=== PATIENT | male | born 1955 | race Hispanic/Latino ===

== ENCOUNTER 2022-07-14 16:30 | Emergency (ER) | payer OTHER ==
[~2022-07-14] VITALS: Ht 157.5 cm; Wt 62.1 kg
[2022-07-14 18:02] LABS: APPEARANCE,URINE CLEAR (CLEAR); BILIRUBIN,URINE NEGATIVE (NEGATIVE); COLOR,URINE LIGHT-YELLOW (YELLOW); GLUCOSE, URINE (UA) NEGATIVE (NEGATIVE); KETONES,URINE NEGATIVE (NEGATIVE); LEUKOCYTE ESTERASE ,URINE 250 Leu/uL (NEGATIVE); NITRATE,URINE NEGATIVE (NEGATIVE); OCCULT BLOOD,URINE LARGE (NEGATIVE); PH,URINE 5.5 (5.0-8.0); PROTEIN,URINE 20 mg/dL (NEGATIVE); UROBILINOGEN,URINE 0.2 mg/dL (0.2-1.0)
[2022-07-14 18:07] LABS: BACTERIA,URINE RARE /HPF (None Seen); MUCUS,URINE RARE LPF (None Seen); RBC,URINE 51-100 /HPF (0-1); SQUAMOUS EPITHELIAL CELL,UR RARE /HPF (0-2)
[2022-07-14 18:11] LABS: BASOPHILS % (AUTO) 0.5 % (0.0-5.0); EOSINOPHILS % (AUTO) 0.2 % (0.0-8.0); HEMATOCRIT 37.9 % (42-54); MEAN CORPUSCULAR HEMOGLOBIN 29.5 pg (27.0-33.0); MEAN CORPUSCULAR HGB CONC 34.8 g/dL (32.0-36.0); MEAN CORPUSCULAR VOLUME 84.6 fL (79-99); MONOCYTES % (AUTO) 7.8 % (3.0-13.0); PLATELET COUNT (AUTO) 249 K/uL (130-400); RED BLOOD CELL COUNT(AUTO) 4.48 MIL/uL (4.50-6.20); RED CELL DISTRIBUTION WIDTH 13.2 % (11.0-15.5); WHITE BLOOD COUNT (AUTO) 13.5 K/uL (4.8-10.8)
[2022-07-14 18:23] LABS: CREATININE 1.1 mg/dL (0.5-1.5); POTASSIUM 3.4 mmol/L (3.5-5.1)
[2022-07-14 18:29] LABS: ALBUMIN 3.5 g/dL (3.5-5.0); TOTAL PROTEIN, SERUM 7.3 g/dL (6.0-8.3)
[2022-07-14] MEDS ORDERED: PHENAZOPYRIDINE HCL 200 MG TABLET PO ONE (18:30)
[2022-07-14] MEDS ORDERED: MACR100 PO (18:41)
[2022-07-14] MEDS ORDERED: PHEN-847 PO (18:41)
[2022-07-14] MEDS ORDERED: CEFTRIAXONE 1G VIAL ONE (18:51)
[2022-07-14] MEDS ORDERED: PHENAZOPYRIDINE HCL 200 MG TABLET ONE (18:51)
[2022-07-14] MEDS ORDERED: CEFTRIAXONE 1G VIAL IVP ONE (19:00)
[2022-07-14 19:17] VITALS: BP 145/82
== END 2022-07-14 19:23 | disposition home or self-care (01) ==
LOC: EDH 16:30
DX: N39.0 Urinary tract infection, site not specified (principal); N32.89 Other specified disorders of bladder
CPT/HCPCS: 99283; 96374; 80053; 85025; 87088; 83605; 81001; 36415; J0696

== ENCOUNTER 2022-12-05 09:09 | Observation (INO) | payer OTHER ==
[~2022-12-05] VITALS: Ht 157.5 cm; Wt 62.6 kg
[~2022-12-05 09:09] MED LIST: MACR100 PO; PHEN-847 PO
[2022-12-05 09:53] LABS: BASOPHILS % (AUTO) 0.9 % (0.0-5.0); EOSINOPHILS % (AUTO) 0.1 % (0.0-8.0); HEMATOCRIT 39.6 % (42-54); LYMPHOCYTES % (AUTO) 13.5 % (21.0-51.0); MEAN CORPUSCULAR HEMOGLOBIN 29.9 pg (27.0-33.0); MEAN CORPUSCULAR HGB CONC 34.8 g/dL (32.0-36.0); MEAN CORPUSCULAR VOLUME 85.7 fL (79-99); MONOCYTES % (AUTO) 4.6 % (3.0-13.0); NEUTROPHILS % (AUTO) 80.2 % (40.0-77.0); PLATELET COUNT (AUTO) 219 K/uL (130-400); RED BLOOD CELL COUNT(AUTO) 4.62 MIL/uL (4.50-6.20); RED CELL DISTRIBUTION WIDTH 13.2 % (11.0-15.5); WHITE BLOOD COUNT (AUTO) 8.5 K/uL (4.8-10.8)
[2022-12-05 10:04] LABS: APPEARANCE,URINE CLEAR (CLEAR); BILIRUBIN,URINE NEGATIVE (NEGATIVE); COLOR,URINE COLORLESS (YELLOW); GLUCOSE, URINE (UA) NEGATIVE (NEGATIVE); KETONES,URINE NEGATIVE (NEGATIVE); LEUKOCYTE ESTERASE ,URINE NEGATIVE Leu/uL (NEGATIVE); NITRATE,URINE NEGATIVE (NEGATIVE); OCCULT BLOOD,URINE SMALL (NEGATIVE); PROTEIN,URINE NEGATIVE (NEGATIVE); UROBILINOGEN,URINE 0.2 mg/dL (0.2-1.0)
[2022-12-05 10:08] LABS: CREATININE 1.2 mg/dL (0.5-1.5); POTASSIUM 3.1 mmol/L (3.5-5.1)
[2022-12-05 10:14] LABS: ALBUMIN 3.8 g/dL (3.5-5.0); TOTAL PROTEIN, SERUM 7.6 g/dL (6.0-8.3)
[2022-12-05] MEDS ORDERED: CEFTRIAXONE 2GM VIAL IVP ONE (10:30)
[2022-12-05 10:42] LABS: BACTERIA,URINE Rare /HPF (None Seen); RBC,URINE 0-1 /HPF (0-1); SQUAMOUS EPITHELIAL CELL,UR Rare /HPF (0-2); WBC,URINE None Seen /HPF (0-1)
[2022-12-05] MEDS ORDERED: HYDRALAZINE 20MG/ML VIAL IV PRN (11:00)
[2022-12-05] MEDS ORDERED: LACTULOSE 20 GM/30 ML UDCUP PO PRN (11:00)
[2022-12-05] MEDS ORDERED: POTASSIUM CHLORIDE 10% ELIXIR 20 MEQ/15 ML UDCUP PO PRN (11:00)
[2022-12-05] MEDS ORDERED: ACETAMINOPHEN 325 MG TAB PO PRN (11:00)
[2022-12-05] MEDS ORDERED: LABETALOL 20MG SYG IV PRN (11:00)
[2022-12-05] MEDS ORDERED: ONDANSETRON 4MG INJ IVP PRN (11:00)
[2022-12-05] MEDS: INSULIN HUMULIN R 100 UNIT/ML 3ML SQ SCH ×3 (11:30→21:00)
[2022-12-05] MEDS: KCL 20 MEQ ERTAB PO PRN ×2 (12:41→21:54)
[2022-12-05] MEDS ORDERED: BUSP7.5T7 PO (14:22)
[2022-12-05] MEDS ORDERED: DOXA4TAB3 PO (14:22)
[2022-12-05] MEDS ORDERED: ATOR10 PO (14:22)
[2022-12-05 15:20] VITALS: BP 127/60
[2022-12-05 20:00] VITALS: BP 153/65
[2022-12-05] MEDS: 0.9%NACL 1000ML 1,000 ML IV SCH (21:44)
[2022-12-05] MEDS: FAMOTIDINE 20MG TAB PO SCH (21:44)
[2022-12-05] MEDS: CEFEPIME HCL 1 GM VIAL IVP SCH (21:44)
[2022-12-05 22:30] VITALS: BP 125/62
[2022-12-06] MEDS: KCL 20 MEQ ERTAB PO PRN (01:45)
[2022-12-06] MEDS: 0.9%NACL 1000ML 1,000 ML IV SCH ×2 (05:24→13:30)
[2022-12-06 05:58] LABS: BASOPHILS % (AUTO) 0.8 % (0.0-5.0); EOSINOPHILS % (AUTO) 0.7 % (0.0-8.0); LYMPHOCYTES % (AUTO) 18.2 % (21.0-51.0); MEAN CORPUSCULAR HEMOGLOBIN 29.4 pg (27.0-33.0); MEAN CORPUSCULAR HGB CONC 33.2 g/dL (32.0-36.0); MEAN CORPUSCULAR VOLUME 88.8 fL (79-99); MONOCYTES % (AUTO) 9.9 % (3.0-13.0); NEUTROPHILS % (AUTO) 70.1 % (40.0-77.0); PLATELET COUNT (AUTO) 245 K/uL (130-400); RED BLOOD CELL COUNT(AUTO) 4.28 MIL/uL (4.50-6.20); RED CELL DISTRIBUTION WIDTH 13.6 % (11.0-15.5); WHITE BLOOD COUNT (AUTO) 8.6 K/uL (4.8-10.8)
[2022-12-06 06:01] VITALS: BP 125/63
[2022-12-06 06:15] LABS: PHOSPHORUS 2.8 mg/dL (2.5-4.9); POTASSIUM 4.6 mmol/L (3.5-5.1)
[2022-12-06] MEDS: INSULIN HUMULIN R 100 UNIT/ML 3ML SQ SCH ×2 (06:20→11:30)
[2022-12-06 06:23] LABS: HEMOGLOBIN A1C 5.5 % (4.0-6.0)
[2022-12-06 08:00] VITALS: BP 116/58
[2022-12-06] MEDS: FAMOTIDINE 20MG TAB PO SCH (08:10)
[2022-12-06] MEDS: CEFEPIME HCL 1 GM VIAL IVP SCH (08:10)
[2022-12-06 11:19] VITALS: BP 134/67
== END 2022-12-06 15:00 | disposition home or self-care (01) ==
LOC: EDH 09:09 → EDHIP 10:59 → 4CH 14:00
PROVIDERS: ADMIT Internal Medicine; ATTEND Internal Medicine
DX: R33.9 Retention of urine, unspecified (principal); E87.20 Acidosis, unspecified; I16.0 Hypertensive urgency; I10 Essential (primary) hypertension; E78.5 Hyperlipidemia, unspecified; N35.911 Unspecified urethral stricture, male, meatal; Z87.440 Personal history of urinary (tract) infections; Z79.899 Other long term (current) drug therapy; Z98.890 Other specified postprocedural states
CPT/HCPCS: 83605 ×3; 96374; 96361 ×2; 96375; 99284; 80053; 85025 ×2; 87040 ×2; 87088; 82948 ×2; 81001; 36415 ×2; 71045; 96376; 83036; 83735; 84100; 80048; G0378 ×28; J0696; J0692 ×2

== ENCOUNTER 2023-11-05 14:40 | Emergency (ER) | payer OTHER ==
[~2023-11-05] VITALS: Ht 157.5 cm; Wt 79.4 kg
[~2023-11-05 14:40] MED LIST changes: +ATOR10 PO; +BUSP7.5T7 PO; +DOXA4TAB3 PO; -MACR100 PO; -PHEN-847 PO
[2023-11-05 14:47] VITALS: O2SAT 98
[2023-11-05 14:48] VITALS: BP 175/57; PULSE 89; RESP 18
[2023-11-05 15:43] LABS: BILIRUBIN,URINE NEGATIVE (NEGATIVE); GLUCOSE, URINE (UA) NEGATIVE (NEGATIVE); KETONES,URINE NEGATIVE (NEGATIVE); LEUKOCYTE ESTERASE ,URINE 500 Leu/uL (NEGATIVE); NITRATE,URINE NEGATIVE (NEGATIVE); OCCULT BLOOD,URINE LARGE (NEGATIVE); PROTEIN,URINE 30 mg/dL (NEGATIVE); UROBILINOGEN,URINE 0.2 mg/dL (0.2-1.0)
[2023-11-05 15:45] LABS: ADD UA MICROSCOPIC YES; APPEARANCE,URINE HAZY (CLEAR)
[2023-11-05 15:46] LABS: COLOR,URINE RED (YELLOW)
[2023-11-05 15:49] LABS: BACTERIA,URINE FEW /HPF (None Seen); SQUAMOUS EPITHELIAL CELL,UR RARE /HPF (0-2)
[2023-11-05] MEDS ORDERED: LEVO-70 PO (16:23)
[2023-11-05] MEDS ORDERED: LEVOFLOXACIN 500 MG TABLET PO ONE (16:30)
== END 2023-11-05 16:40 | disposition home or self-care (01) ==
LOC: EDH 14:40
DX: N30.01 Acute cystitis with hematuria (principal); Z93.59 Other cystostomy status; Z79.899 Other long term (current) drug therapy; Z98.890 Other specified postprocedural states
CPT/HCPCS: 81001; 87077; 87088; 87186

== ENCOUNTER 2024-02-09 01:52 | Emergency (ER) | payer OTHER ==
[~2024-02-09] VITALS: Ht 157.5 cm; Wt 65.8 kg
[~2024-02-09 01:52] MED LIST changes: +LEVO-70 PO
[2024-02-09 02:20] VITALS: BP 180/88; PULSE 76; RESP 18; O2SAT 99
[2024-02-09 03:17] LABS: APPEARANCE,URINE CLOUDY (CLEAR); BILIRUBIN,URINE NEGATIVE (NEGATIVE); COLOR,URINE LIGHT-YELLOW (YELLOW); GLUCOSE, URINE (UA) NEGATIVE (NEGATIVE); KETONES,URINE NEGATIVE (NEGATIVE); LEUKOCYTE ESTERASE ,URINE 25 Leu/uL (NEGATIVE); NITRATE,URINE NEGATIVE (NEGATIVE); OCCULT BLOOD,URINE LARGE (NEGATIVE); PH,URINE 5.5 (5.0-8.0); PROTEIN,URINE NEGATIVE (NEGATIVE); UROBILINOGEN,URINE 0.2 mg/dL (0.2-1.0)
[2024-02-09 03:19] LABS: ADD UA MICROSCOPIC YES
[2024-02-09 03:20] LABS: BACTERIA,URINE RARE /HPF (None Seen)
== END 2024-02-09 03:18 | disposition home or self-care (01) ==
LOC: EDH 01:52
DX: N40.1 Benign prostatic hyperplasia with lower urinary tract symptoms (principal); R33.8 Other retention of urine; Z79.899 Other long term (current) drug therapy; Z98.890 Other specified postprocedural states
CPT/HCPCS: 51702; 81001

== ENCOUNTER 2024-02-26 21:04 | Emergency (ER) | payer OTHER ==
[~2024-02-26] VITALS: Ht 157.5 cm; Wt 65.8 kg
[2024-02-26 23:58] LABS: APPEARANCE,URINE CLEAR (CLEAR); BILIRUBIN,URINE NEGATIVE (NEGATIVE); COLOR,URINE COLORLESS (YELLOW); GLUCOSE, URINE (UA) NEGATIVE (NEGATIVE); KETONES,URINE NEGATIVE (NEGATIVE); LEUKOCYTE ESTERASE ,URINE 250 Leu/uL (NEGATIVE); NITRATE,URINE NEGATIVE (NEGATIVE); OCCULT BLOOD,URINE LARGE (NEGATIVE); PROTEIN,URINE 50 mg/dL (NEGATIVE); UROBILINOGEN,URINE 0.2 mg/dL (0.2-1.0)
[2024-02-27] LABS: ADD UA MICROSCOPIC YES
[2024-02-27 00:01] LABS: BACTERIA,URINE FEW /HPF (None Seen); MUCUS,URINE RARE LPF (None Seen)
[2024-02-27 01:53] VITALS: BP 145/57; PULSE 64; RESP 20; O2SAT 98
[2024-02-27] MEDS ORDERED: CIPR-278 PO (01:56)
== END 2024-02-27 02:08 | disposition home or self-care (01) ==
LOC: EDH 21:04
DX: N30.01 Acute cystitis with hematuria (principal); R33.9 Retention of urine, unspecified; I10 Essential (primary) hypertension; E78.00 Pure hypercholesterolemia, unspecified; E78.5 Hyperlipidemia, unspecified
CPT/HCPCS: 51702; 81001; 87077; 87088; 87186

== ENCOUNTER 2025-01-12 12:41 | Emergency (ER) | payer OTHER ==
[~2025-01-12] VITALS: Ht 157.5 cm; Wt 61.2 kg
[~2025-01-12 12:41] MED LIST changes: +CIPR-278 PO
[2025-01-12 14:06] LABS: HEMATOCRIT 36.3 % (42-54); MEAN CORPUSCULAR HEMOGLOBIN 29.3 pg (27.0-33.0); MEAN CORPUSCULAR HGB CONC 33.9 g/dL (32.0-36.0); MEAN CORPUSCULAR VOLUME 86.4 fL (79-99); RED BLOOD CELL COUNT(AUTO) 4.2 MIL/uL (4.50-6.20); RED CELL DISTRIBUTION WIDTH 13.6 % (11.0-15.5); WHITE BLOOD COUNT (AUTO) 13.5 K/uL (4.8-10.8)
--- NOTE | 2025-01-12 14:15 | ERN ---
General Chief Complaint: Multiple Complaints Stated Complaint: NIGHT SWEATS, DECREASED APPETITE Time Seen by MD: 12:44 Source: patient History of Present Illness Initial Comments PATIENT IS A 69-YEAR-OLD MALE COMING IN TO BE EVALUATED FOR SHAKINESS. PER PATIENT LAST WEEKEND HE STARTED PRESENTING WITH SHAKINESS THAT IS SUBSIDED SHORTLY AFTER PRESENTING. PATIENT HAS A HISTORY OF ANXIETY IS CURRENTLY ON MEDICATION BUT STATES IT MIGHT NOT BE WORKING. ALONG WITH THE SHAKINESS PATIENT STATES THAT HE DOES HAVE SHOTTY ACHES ON AND OFF FOR ONE WEEK. Allergies: Coded Allergies: No Known Drug Allergies (Unverified Allergy, Unknown, 07/14/22) Home Meds Active Scripts Ciprofloxacin HCl (Cipro) 500 Mg Tablet, 1 TAB PO BID for 5 Days, #10 TAB 0 Refills Prov:EL LLOYD MD 02/27/24 Levofloxacin (Levofloxacin) 500 Mg Tablet, 500 MG PO DAILY for 7 Days, #7 TAB Prov:AMADOU WEINSTEIN [employer] 11/05/23 Reported Medications Atorvastatin Calcium (LIPITOR) 20 Mg Tab, 20 MG PO HS, TAB 12/05/22 Doxazosin Mesylate (Doxazosin Mesylate) 4 Mg Tablet, 4 MG PO DAILY, TAB 12/05/22 Buspirone HCl (Buspirone HCl) 7.5 Mg Tablet, 7.5 MG PO BID, TAB 12/05/22 Past Medical History Past Medical History: Anxiety, Cancer, High Cholesterol, Hypertension Medical History Other: PROSTATE Past Surgical History: Other Family History Family History: Negative Social History Social History: Lives with family ROS Dictation CONSTITUTIONAL: NO CHILLS, NO FEVER, NO WEAKNESS, NO DIAPHORESIS, NO MALAISE. HEAD/FACE: NO SIGNS OF TRAUMA. EENT: NO EYE PAIN, NO BLURRED VISION, NO TEARING, NO DOUBLE VISION, NO EAR PAIN, NO EAR DISCHARGE, NO NOSE PAIN, NO NASAL CONGESTION, NO THROAT PAIN, NO THROAT SWELLING, NO MOUTH PAIN. RESPIRATORY: NO COUGH, NO ORTHOPNEA, NO SOB, NO STRIDOR, NO WHEEZING. CARDIOVASCULAR: NO CHEST PAIN, NO EDEMA, NO PALPITATIONS, NO SYNCOPE. GASTROINTESTINAL/ABDOMINAL: NO ABDOMINAL PAIN, NO CONSTIPATION, NO DIARRHEA, NO NAUSEA, NO VOMITING. GENITOURINARY: NO ABNORMAL DISCHARGE, NO DYSURIA, NO FREQUENT URINATION, NO HEMATURIA. NO COMPLAINTS OF PAIN IN THE GENITALS. MUSCULOSKELETAL: NO BACK PAIN, NO GOUT, NO JOINT PAIN, NO JOINT SWELLING, NO MUSCLE PAIN, NO MUSCLE STIFFNESS, NO NECK PAIN. INTEGUMENTARY: NO CHANGE IN COLOR, NO CHANGE IN HAIR/NAILS, NO DRYNESS, NO LESION, NO LUMPS, NO RASH. NEUROLOGICAL/PSYCH: NO ANXIETY, NOT DEPRESSED, NO EMOTIONAL PROBLEM, NO HEADACHE, NO NUMBNESS, NO PRE-EXISTING DEFICIT, NO HISTORY OF SEIZURES, NO TREMORS, NO WEAKNESS. HEMATOLOGIC/LYMPHATIC: NOT ANEMIC, NO HISTORY OF BLOOD CLOTS, NO APPARENT BLEEDING, NO BRUISING, GLANDS NOT SWOLLEN. ALL SYSTEMS NEGATIVE, EXCEPT NOTED. Physical Exam Physical Exam Dictation VITAL SIGNS: REVIEWED. GENERAL APPEARANCE: ALERT, ORIENTED X3, NO ACUTE DISTRESS, OBESE. HEAD AND FACE: NON-TRAUMATIC. EYES: PERRL, PINK CONJUNCTIVAS, EYELID NO TRAUMA, ANTERIOR CHAMBER CLEAR. EARS: PINNAS INTACT AND NO SIGNS OF TRAUMA OR ERYTHEMA. EAR CANALS CLEAR AND NO DISCHARGE. TMS NO ERYTHEMA. NOSE: NO DISCHARGE, NO BLEEDING. OROPHARYNX: MOUTH NORMAL, TEETH NO CARIES, TONGUE PINK. PHARYNX CLEAR, NO ERYTHEMA. TONSILS NO EXUDATES, NO ABSCESSES NOTED. MUCOUS MEMBRANE MOIST. NECK: SUPPLE, NON-TENDER, NO THYROMEGALY, NO MASSES, NO JVD, NO BRUITS. BREAST: DEFERRED. CHEST: NO TENDERNESS, NO CREPITUS, NO PARADOXICAL MOVEMENT, NO RETRACTIONS. LUNGS: CLEAR, WELL-VENTILATED, SYMMETRIC, NO RALES, NO WHEEZING, NO RHONCHI, NO STRIDOR, GOOD BREATH SOUNDS BILATERALLY. HEART: REGULAR RATE, REGULAR RHYTHM, NO MURMUR, NO GALLOPS. VASCULAR: NO PERIPHERAL EDEMA. ABDOMEN: SOFT, POSITIVE BOWEL SOUNDS, NONDISTENDED, NO GUARDING, NONTENDER, NO REBOUND, NO MASSES NO HEPATOMEGALY, NO SPLENOMEGALY, NO LACEY'S SIGN, NO HERNIAS. RECTAL: DEFERRED. GENITAL: DEFERRED. NEUROLOGICAL: NORMAL SPEECH, GROSS MOTOR FUNCTION INTACT, GROSS SENSORY FUNCTION INTACT. MUSCULOSKELETAL: NECK NONTENDER, FULL RANGE OF MOTION, BACK NONTENDER, FULL RANGE OF MOTION. EXTREMITIES: NONTENDER, FULL RANGE OF MOTION. SKIN: COLOR PINK, DRY, NO TURGOR, NO RASH, NO LACERATIONS, NO ABRASIONS, NO CONTUSIONS. LYMPHATICS: DEFERRED. Results Laboratory and Microbiology Lab and Micro Result Laboratory Tests Test 01/12/25 14:01 01/12/25 15:36 White Blood Count 13.5 K/uL (4.8-10.8) H Red Blood Count 4.20 MIL/uL (4.50-6.20) L Hemoglobin 12.3 g/dL (14.0-18.0) L Hematocrit 36.3 % (42-54) L Mean Corpuscular Volume 86.4 fL (79-99) Mean Corpuscular Hemoglobin 29.3 pg (27.0-33.0) Mean Corpuscular Hemoglobin Concent 33.9 g/dL (32.0-36.0) Red Cell Distribution Width 13.6 % (11.0-15.5) Platelet Count 321 K/uL (130-400) Mean Platelet Volume 10.4 fL (7.5-10.5) Nucleated Red Blood Cells 0.0 % (0.0-0.19) Sodium Level 136 mmol/L (136-145) Potassium Level 4.6 mmol/L (3.5-5.1) Chloride Level 100 mmol/L (101-111) L Carbon Dioxide Level 28 mmol/L (21-32) Blood Urea Nitrogen 13 mg/dL (7-18) Creatinine 1.3 mg/dL (0.5-1.3) Glomerular Filtration Rate Calc 59 mL/min (>90) Random Glucose 110 mg/dL (70-105) H Total Calcium 10.6 mg/dL (8.5-10.1) H Total Creatine Kinase 86 U/L (21-232) Urine Color LIGHT-YELLOW (YELLOW) Urine Appearance HAZY (CLEAR) Urine pH 5.5 (5.0-8.0) Urine Specific Beattie 1.007 (1.001-1.031) Urine Protein 20 mg/dL (NEGATIVE) H Urine Glucose (UA) NEGATIVE mg/dL (NEGATIVE) Urine Ketones 5 mg/dL (NEGATIVE) H Urine Occult Blood LARGE (NEGATIVE) H Urine Nitrate NEGATIVE (NEGATIVE) Urine Bilirubin NEGATIVE mg/dL (NEGATIVE) Urine Urobilinogen 0.2 mg/dL (0.2-1.0) Urine Leukocyte Esterase 500 Leslie/uL (NEGATIVE) H Urine RBC 6-10 /HPF (0-1) H Urine WBC 26-50 /HPF (0-1) H Urine Squamous Epithelial Cells RARE /HPF (0-2) Urine Bacteria RARE /HPF (None Seen) Urine Opiates Screen NEGATIVE (NEGATIVE) Urine Barbiturates Screen NEGATIVE (NEGATIVE) Urine Phencyclidine Screen NEGATIVE (NEGATIVE) Urine Amphetamines Screen NEGATIVE (NEGATIVE) Urine Benzodiazepines Screen NEGATIVE (NEGATIVE) Urine Cocaine Screen NEGATIVE (NEGATIVE) Urine Marijuana (THC) Screen NEGATIVE (NEGATIVE) Labs Reviewed?: Yes MDM MDM: Differential diagnosis: Dehydration coming UTI, Patient is a 69-year-old male coming in to be evaluated for anxiousness. Upon evaluation patient did present with the elevated white blood cell count and urinary tract infection. Patient will be discharged in stable condition with a diagnosis of UTI and dehydration. IV fluids IV antibiotics were given. Patient will be with the advised her appropriate follow up with PCP in 1-2 days. ED Course Orders Procedure Category Date Status Time Cbc Without LAB 01/12/25 Complete Differential 13:54 Basic Metabolic Panel LAB 01/12/25 Complete 13:54 Creatine Kinase, Total LAB 01/12/25 Complete 13:54 Urinalysis LAB 01/12/25 Complete W/Microscopic 14:41 0.9%Nacl 1000ml (Ns PHA 01/12/25 Complete 1000ml) 15:00 Drug Screen Urine LAB 01/12/25 Complete 15:07 Culture Urine LEANDRA 01/12/25 In Process 15:46 Ceftriaxone 1g Vial PHA 01/12/25 Verified (Rocephine 1g Inj) 16:00 Current Medications Medications (Trade) Dose Ordered Sig/Gareth Route PRN Reason Start Time Stop Time Status Last Admin Dose Admin Sodium Chloride 1,000 ml @ 0 mls/hr ONCE ONCE IV 01/12/25 15:00 01/12/25 15:01 DC 01/12/25 15:23 Vital Signs Date Time Temp Pulse Resp B/P (MAP) Pulse Ox O2 Delivery O2 Flow Rate FiO2 01/12/25 12:44 99.3 98 16 165/67 97 Room Air 0 DX & DISP Disposition: Discharge Departure Impression: Primary Impression: Urinary tract infection Condition: Stable Scripts Cephalexin Monohydrate (Keflex) 500 Mg Cap 1 CAP PO TID for 10 Days, #30 CAP 0 Refills Prov: ANGELA BEE MD 01/12/25 Additional Instructions: FOLLOW-UP WITH PRIMARY CARE PROVIDER IN 1 TO 2 DAYS. TAKE MEDICATIONS DIRECTED HERE IN THE EMERGENCY ROOM. OKAY TO CONTINUE HOME MEDICATIONS UNLESS OTHERWISE DISCUSSED DURING YOUR VISIT IN THE EMERGENCY ROOM TODAY. RETURN TO YOUR NEAREST EMERGENCY ROOM IF SYMPTOMS WORSEN OR IF THERE IS NO IMPROVEMENT. CALL 911 IF YOU NEED IMMEDIATE ASSISTANCE. TAKE TYLENOL [id number] NEEDED AND IF NO CONTRAINDICATIONS ARE PRESENT. INCREASE ORAL HYDRATION. A WOUND CULTURE OR URINE CULTURE WAS ORDERED HERE IN THE EMERGENCY ROOM DEPARTMENT PLEASE FOLLOW-UP WITH PRIMARY CARE PROVIDER AND ADVISE THEM TO GET REPEAT PORTS FROM OUR FACILITY. IF YOU HAD ANY EDILIA WRAP/SPLINTS THAT WERE APPLIED HERE, PLEASE DO NOT REMOVE THEM UNTIL YOU SEE YOUR PRIMARY CARE OR SPECIALTY. Referrals: Referrals: ODALYS TAO MD (PCP) IRENA SWIFT MD Time of Disposition: 15:56 ANGELA BEE MD Jan 12, 2025 14:15
[2025-01-12 14:16] LABS: CREATININE 1.3 mg/dL (0.5-1.3); POTASSIUM 4.6 mmol/L (3.5-5.1)
[2025-01-12] MEDS: 0.9%NACL 1000ML 1,000 ML IV ONE (15:23)
--- NOTE | 2025-01-12 15:23 | NUR ---
PATIENT BEDDED TO ROOM [id number]
[2025-01-12 15:45] LABS: APPEARANCE,URINE HAZY (CLEAR); BACTERIA,URINE RARE /HPF (None Seen); BILIRUBIN,URINE NEGATIVE (NEGATIVE); COLOR,URINE LIGHT-YELLOW (YELLOW); GLUCOSE, URINE (UA) NEGATIVE (NEGATIVE); KETONES,URINE 5 mg/dL (NEGATIVE); LEUKOCYTE ESTERASE ,URINE 500 Leu/uL (NEGATIVE); MUCUS,URINE RARE LPF (None Seen); NITRATE,URINE NEGATIVE (NEGATIVE); OCCULT BLOOD,URINE LARGE (NEGATIVE); PH,URINE 5.5 (5.0-8.0); PROTEIN,URINE 20 mg/dL (NEGATIVE); SQUAMOUS EPITHELIAL CELL,UR RARE /HPF (0-2); UROBILINOGEN,URINE 0.2 mg/dL (0.2-1.0); WBC,URINE 26-50 /HPF (0-1)
[2025-01-12 15:51] LABS: AMPHET/METH SCREEN,URINE NEGATIVE (NEGATIVE); BARBITURATE SCREEN, URINE NEGATIVE (NEGATIVE); BENZODIAZEPINES SCREEN,URINE NEGATIVE (NEGATIVE); CANNABINOID SCREEN,URINE NEGATIVE (NEGATIVE); COCAINE SCREEN,URINE NEGATIVE (NEGATIVE); OPIATE SCREEN,URINE NEGATIVE (NEGATIVE); PHENCYCLIDINE SCREEN,URINE NEGATIVE (NEGATIVE)
[2025-01-12] MEDS ORDERED: CEPH500B PO (15:57)
[2025-01-12] MEDS: cefTRIAXone 1G VIAL IVPB ONE (16:27)
[2025-01-12 16:38] VITALS: BP 144/60; PULSE 80; RESP 16; TEMP 98; O2SAT 98
== END 2025-01-12 17:07 | disposition home or self-care (01) ==
LOC: EDH 12:41
DX: N39.0 Urinary tract infection, site not specified (principal); E78.00 Pure hypercholesterolemia, unspecified; F41.9 Anxiety disorder, unspecified; I10 Essential (primary) hypertension; Z79.899 Other long term (current) drug therapy
CPT/HCPCS: 99284; 96365; 96361; 81001; 82550; 80048; 80305; 85027; 87086 ×2; 87186; 36415; J7030; J0696